=== PATIENT | female | born 1990 | race Caucasian/White ===

== ENCOUNTER 2021-03-09 06:13 | Inpatient (IN) | payer BC ==
--- NOTE | 2021-03-08 19:58 | P.HPOB ---
History of Present Illness H&P Date: 03/08/21 Chief Complaint: Induction of labor, Advanced cervical dilatation This is a 30 y.o. female, 2, para 1, with an estimated date of confinement of 03/09/2021, estimated gestational age of 40-0/7 weeks, who presents for induction of labor due to advanced cervical dilatation. She was seen in the office on Sunday and found to be 6.5-7 cm dilated. She was offered induction that day, but declined and requested Sunday. She has been feeling stronger more frequent contractions. course has been uncomplicated. She transferred care to [place] from [place] at 35 weeks. labs: Syphilis screen-neg HIV-NR Hepatitis B surface antigen-neg Hemoglobin-13.4 Blood type-A+ Antibody screen-neg Rubella-immune Hgb A1C-4.9 GBS-neg OB Hx: . 1 vaginal delivery. Hx chorioamnionitis per records received. Hx of PP depression. Certified Histologic Technician Hx: no hx STDs Social Hx: . Review of Systems Constitutional: Denies chills, Denies fever Eyes: denies blurred vision, denies pain Cardiovascular: Denies chest pain, Denies shortness of breath Respiratory: Denies cough Gastrointestinal: Reports abdominal pain (irregular contractions) Genitourinary: Reports pelvic pain, Reports Musculoskeletal: Reports low back pain Integumentary: Denies pruritus, Denies rash Neurological: Denies numbness, Denies weakness Psychiatric: Reports anxiety, Reports depression Past Medical History Past Medical History: Asthma Additional Past Medical History / Comment(s): PCOS Past Surgical History: Adenoidectomy, Tonsillectomy Additional Past Surgical History / Comment(s): [place] teeth Past Anesthesia/Blood Transfusion Reactions: No Reported Reaction Past Psychological History: Anxiety, Depression Smoking Status: Never smoker Past Alcohol Use History: None Reported Past Drug Use History: None Reported - Past Family History Mother Additional Family Medical History / Comment(s): Unknown, pt. adopted Medications and Allergies Home Medications Medication Instructions Recorded Confirmed Type Albuterol Nebulized [Ventolin 1.25 mg INHALATION Q6H 03/08/21 03/08/21 History Nebulized] Fluticasone/Salmeterol [Advair 1 inhalation PO BID 03/08/21 03/08/21 History 100-50 Diskus] Ipratropium/Albuterol Sulfate 1 - 2 puff INHALATION QID 03/08/21 03/08/21 History [Combivent Respimat Inhaler] Pnv,Calcium 72/Iron/Folic Acid 1 each PO 03/08/21 History [ Plus Tablet] Allergies Allergy/AdvReac Type Severity Reaction Status Date / Time No Known Allergies Allergy Verified 03/08/21 19:55 Exam Osteopathic Statement: *. No significant issues noted on an osteopathic structural exam other than those noted in the History and Physical/Consult. HEENT: within normal limits Heart: regular rate and rhythm Lungs: clear to auscultatiton bilaterally Abdomen: Cervix: 6.5-7 cm/60-70%/-3 heart tones: 120's by doppler Extremiteis: Neg. Nilda's Assessment and Plan (1) 40 weeks gestation of Status: Acute Code(s): Z3A.40 - 40 WEEKS GESTATION OF SNOMED Code(s): 47606947 Plan: Admit for oxytocin induction of labor. Expectant management. Epidural anesthesia if desired.
[2021-03-09] MEDS ORDERED: LIDOCAINE 1% (10MG/ML) FOR IV START INTRADERMA PRN (06:33)
[2021-03-09] MEDS ORDERED: CARBOPROST TROMETHAMINE 250 MCG/ML 1 ML AMP IM PRN (06:33)
[2021-03-09] MEDS ORDERED: METHYLERGONOVINE 0.2 MG/ML 1 ML AMP IM PRN (06:33)
[2021-03-09] MEDS ORDERED: OXYTOCIN 10 UNIT/ML 1 ML VIAL IM PRN (06:33)
[2021-03-09] MEDS ORDERED: TERBUTALINE 1 MG/ML VIAL SQ PRN (06:33)
[2021-03-09] MEDS ORDERED: OXYTOCIN 30 UNITS/500 ML NS 30 UNIT in SALINE 1 500ML.BAG IV SCH ×2 (06:33→16:46)
[2021-03-09] MEDS ORDERED: LIDOCAINE 0.5% (PF) 5 MG/ML (50 ML SDV) SQ PRN (06:33)
[2021-03-09] MEDS: LACTATED RINGERS 1,000 ML IV SCH ×3 (06:52→14:07)
[2021-03-09 07:03] LABS: Basophils % (A) 0 %; Eosinophils # (A) 0.2 k/uL (0-0.7); Eosinophils % (A) 2 %; HCT 33.2 % (34.0-46.0); HGB 10.8 gm/dL (11.4-16.0); Lymphocytes # (A) 1.3 k/uL (1.0-4.8); Lymphocytes % (A) 16 %; MCH 28.2 pg (25.0-35.0); MCHC 32.7 g/dL (31.0-37.0); MCV 86.5 fL (80.0-100.0); Mean Platelet Volume 9.7; Monocytes # (A) 0.5 k/uL (0-1.0); Monocytes % (A) 6 %; Neutrophils # (A) 5.7 k/uL (1.3-7.7); Neutrophils % (A) 74 %; Platelet Count 201 k/uL (150-450); Poikilocytosis Slight; RBC 3.84 m/uL (3.80-5.40); RDW 13.7 % (11.5-15.5); WBC 7.8 k/uL (3.8-10.6)
[2021-03-09] MEDS ORDERED: SODIUM CHLORIDE 0.9% 100 ML BAG ONE (09:17)
[2021-03-09] MEDS ORDERED: fentaNYL (PF) 50 MCG/ML 5 ML AMP ONE (09:17)
[2021-03-09] MEDS ORDERED: ROPIVACAINE 5MG/ML 20ML VIAL ONE (09:17)
[2021-03-09] MEDS ORDERED: diphenhydrAMINE 50 MG/ML 1 ML VIAL IVP PRN ×2 (16:46)
[2021-03-09] MEDS ORDERED: LANOLIN CREAM 5 GM TUBE TOPICAL PRN (16:46)
[2021-03-09] MEDS ORDERED: HYDROCORTISONE 2.5% RECTAL CREAM 30 GM TUBE RECTAL PRN (16:46)
[2021-03-09] MEDS ORDERED: diphenhydrAMINE 25 MG CAP PO PRN (16:46)
[2021-03-09] MEDS ORDERED: ALBUTEROL NEBULIZED 1.25 MG/3 ML INHALATION SCH (16:46)
[2021-03-09] MEDS ORDERED: BENZOCAINE/MENTHOL SPRAY 1 GM/SPRAY AEROSOL TOPICAL PRN (16:46)
[2021-03-09] MEDS ORDERED: diphenhydrAMINE 50 MG CAP PO PRN (16:46)
[2021-03-09] MEDS ORDERED: ZOLPIDEM 5 MG TAB PO PRN (16:46)
[2021-03-09] MEDS ORDERED: SIMETHICONE 80 MG CHEWABLE PO PRN (16:46)
[2021-03-09] MEDS: IBUPROFEN 600 MG TAB PO PRN ×2 (17:13→22:58)
--- NOTE | 2021-03-09 17:15 | P.PROBDLV ---
Vaginal Delivery Note - . Vaginal Delivery Note: The patient progressed to complete dilation after artificial rupture membranes with clear fluid noted and oxytocin induction of labor. She did receive epidural anesthesia. Once reaching complete, she began pushing. 's head came to a crown. With one further push, the infant's head delivered across the perineum followed by the anterior shoulder in a right occiput anterior lie. Nose and mouth were bulb suctioned at the perineum and nuchal cord times one was doubly clamped and cut and reduced around the 's head. With one further push, the remainder the infant easily delivered and was placed on mother's abdomen. was then taken to warm for evaluation by nursing staff. A viable male is noted with scores of 9 at 1 minute and 9 at 5 minutes and infant weight of 7 pounds 6.9 ounces. Placenta delivered approximately 25 minutes later after manual removal. The placenta was noted to be very adherent to the endometrial cavity. It did appear to be intact after removal. A gloved hand was again placed within the endometrial cavity and no further placental tissue was palpated. A fairly large clot was expressed right after delivery of the placenta. Uterus firmed up fairly quickly after oxytocin was given and uterine massage was carried out. A small first-degree perineal laceration was anesthetized with 1% lidocaine and then sutured with 3-0 Vicryl suture in a running locked fashion followed by several interrupted stitches for hemostasis. Estimated blood loss is approximately 300 mL's. Both mother and infant are in stable condition.
[2021-03-09] MEDS: PRENATAL VIT-IRON-FOLIC ACID 1 EACH CAP PO SCH (18:26)
[2021-03-09] MEDS: SERTRALINE 50 MG TAB PO SCH (19:25)
[2021-03-09] MEDS ORDERED: ALBUTEROL NEBULIZED 1.25 MG/3 ML INHALATION PRN (19:28)
[2021-03-09 19:48] VITALS: RESP 16
[2021-03-09] MEDS ORDERED: IPRATROPIUM-ALBUTEROL 3 ML NEB INHALATION PRN (20:00)
[2021-03-09] MEDS: ACETAMINOPHEN TAB 325 MG TAB PO PRN (20:14)
[2021-03-09] MEDS: SENNOSIDES-DOCUSATE SODIUM 1 EACH TAB PO SCH (20:14)
[2021-03-09] MEDS: SYMBICORT 80-4.5 MCG INHALER INHALATION SCH (22:34)
[2021-03-10] MEDS: ACETAMINOPHEN TAB 325 MG TAB PO PRN (03:10)
[2021-03-10] MEDS: SYMBICORT 80-4.5 MCG INHALER INHALATION SCH (07:00)
[2021-03-10 07:09] LABS: Basophils % (A) 0 %; Eosinophils # (A) 0.2 k/uL (0-0.7); Eosinophils % (A) 2 %; HCT 29.1 % (34.0-46.0); HGB 9.4 gm/dL (11.4-16.0); Hypochromasia Slight; Lymphocytes # (A) 1.3 k/uL (1.0-4.8); Lymphocytes % (A) 14 %; MCH 28.5 pg (25.0-35.0); MCHC 32.5 g/dL (31.0-37.0); MCV 87.7 fL (80.0-100.0); Mean Platelet Volume 10.9; Monocytes # (A) 0.5 k/uL (0-1.0); Monocytes % (A) 5 %; Neutrophils # (A) 7.4 k/uL (1.3-7.7); Neutrophils % (A) 77 %; Platelet Count 162 k/uL (150-450); RBC 3.32 m/uL (3.80-5.40); RDW 13.8 % (11.5-15.5); WBC 9.6 k/uL (3.8-10.6)
[2021-03-10] MEDS ORDERED: AMOXIC-POT CLAV 875-125MG 1 EACH TAB PO SCH (09:00)
--- NOTE | 2021-03-10 09:00 | P.DS ---
Providers Date of admission: 03/09/21 06:13 Expected date of discharge: 03/10/21 Attending physician: Krupa Johnson Primary care physician: Stated None - Discharge Diagnosis(es) (1) 40 weeks gestation of Current Visit: No Status: Acute Hospital Course: this is a 30-year-old female 2 para 1 at 40-0/7 weeks who presented for induction of labor. She underwent oxytocin induction of labor and delivered vaginally a viable male on 03/09/2021 with scores of 9 at 1 minute and 9 at 5 minutes and infant weight of 7 pounds 6.9 ounces. She did undergo a manual placental removal with a very adherent placenta. she has done well. Lochia has been minimal. Pain has been well controlled with oral pain medication however she is sensitive to palpation of her fundus. She is breast- feeding. Vital signs are stable. Abdomen is soft with fundus firm and mildly tender. Fundus is also at the level of the umbilicus and slightly above. Extremities show negative Homans. Impression is status post anginal delivery with manual placenta removal day #1. Plan is to discharge home later today.she will be given a prescription for ibuprofen along with a breast pump and a prescription for Augmentin due to the manual placenta removal. She is advised follow-up in the office in 6 weeks. She is advised to call the office if she has any further questions or concerns prior to her appointment time. Routine instructions are given. Procedures: oxytocin induction of labor Spontaneous vaginal delivery of a viable male on 03/09/2021 Manual placental removal Patient Condition at Discharge: Stable Plan - Discharge Summary New Discharge Prescriptions: New Amoxic-Pot Clav 875-125Mg [Augmentin 875-125] 1 each PO Q12HR #27 tab Ibuprofen [Motrin] 600 mg PO Q6HR PRN #60 tab PRN Reason: Mild Pain (Scale 1 To 3) Sertraline [Zoloft] 50 mg PO DAILY #30 tab Continue Ipratropium/Albuterol Sulfate [Combivent Respimat Inhaler] 1 - 2 puff INHALATION QID Pnv,Calcium 72/Iron/Folic Acid [ Plus Tablet] 1 each PO DAILY Albuterol Nebulized [Ventolin Nebulized] 1.25 mg INHALATION Q6H Fluticasone/Salmeterol [Advair 100-50 Diskus] 1 inhalation PO BID Discharge Medication List Albuterol Nebulized [Ventolin Nebulized] 1.25 mg INHALATION Q6H 03/08/21 [History] Fluticasone/Salmeterol [Advair 100-50 Diskus] 1 inhalation PO BID 03/08/21 [History] Ipratropium/Albuterol Sulfate [Combivent Respimat Inhaler] 1 - 2 puff INHALATION QID 03/08/21 [History] Pnv,Calcium 72/Iron/Folic Acid [ Plus Tablet] 1 each PO DAILY 03/08/21 [History] Amoxic-Pot Clav 875-125Mg [Augmentin 875-125] 1 each PO Q12HR #27 tab 03/10/21 [Rx] Ibuprofen [Motrin] 600 mg PO Q6HR PRN #60 tab 03/10/21 [Rx] Sertraline [Zoloft] 50 mg PO DAILY #30 tab 03/10/21 [Rx] Follow up Appointment(s)/Referral(s): Krupa Johnson DO [Doctor of Osteopathic Medicine] - 04/19/21 11:30 am Activity/Diet/Wound Care/Special Instructions: Instructions 1. Do not begin any exercise program for 3 weeks. 2. Do not resume sexual relations for 3 weeks or longer if uncomfortable. 3. You may take tub baths or showers at any time. 4. You may use tampons if desired after 3 weeks. 5. Keep the area of episiotomy (stitches) clean and dry. 6. If you are not nursing, wear a good fitting, supportive bra during the day and limit fluid intake for at least 1 week to prevent breast engorgement. 7. Call the office, [phone], within the next week to make appointment for your 6 week checkup if it has not already been made. 8. Report any of the following occurrences to the doctor promptly: a. Heavy, excessive bleeding b. Chills, fever c. Burning or frequency of urination d. Pain or redness and breasts if nursing e. Increasing pain or swelling in episiotomy (stitches). In addition to the above instructions, the following additional should be followed: 1. No heavy lifting or straining (exercising) until after 6 week checkup. 2. Keep abdominal incision clean and dry: You may wear a dressing if more comf ortable. 3. Make office appointment for 10 days after going home or as instructed by her doctor. Discharge Disposition: HOME SELF-CARE
[2021-03-10] MEDS: IBUPROFEN 600 MG TAB PO PRN (09:15)
[2021-03-10] MEDS: PRENATAL VIT-IRON-FOLIC ACID 1 EACH CAP PO SCH (09:17)
[2021-03-10] MEDS: SERTRALINE 50 MG TAB PO SCH (09:17)
[2021-03-10] MEDS: SENNOSIDES-DOCUSATE SODIUM 1 EACH TAB PO SCH (09:17)
[2021-03-10 17:52] VITALS: BP 115/72; PULSE 66; TEMP 98.2
== END 2021-03-10 17:35 | disposition home or self-care (01) | DRG 806 ==
LOC: 4FBP 06:13
PROVIDERS: ADMIT Obstetrics & Gynecology; ATTEND Obstetrics & Gynecology
PROC: 10E0XZZ Delivery of Products of Conception, External Approach (ICD-10-PCS; principal; 2021-03-09)
PROC: 0HQ9XZZ Repair Perineum Skin, External Approach (ICD-10-PCS; 2021-03-09)
PROC: 10D17Z9 Manual Extraction of Products of Conception, Retained, Via Natural or Artificial Opening (ICD-10-PCS; 2021-03-09)
PROC: 3E033VJ Introduction of Other Hormone into Peripheral Vein, Percutaneous Approach (ICD-10-PCS; 2021-03-09)
DX: O69.81X0 Labor and delivery complicated by cord around neck, without compression, not applicable or unspecified (principal); O72.0 Third-stage hemorrhage; Z37.0 Single live birth; O70.0 First degree perineal laceration during delivery; O99.344 Other mental disorders complicating childbirth; O99.52 Diseases of the respiratory system complicating childbirth; Z3A.40 40 weeks gestation of pregnancy; J45.909 Unspecified asthma, uncomplicated; F41.9 Anxiety disorder, unspecified; F32.9 Major depressive disorder, single episode, unspecified; E28.2 Polycystic ovarian syndrome
CPT/HCPCS: 85025; 86850; 86900; 86901; 88307